=== PATIENT | female | born 1980 | race Caucasian/White ===

== ENCOUNTER 2019-12-13 09:25 | Outpatient (CLI) | payer MEDICAID, SELFPAY ==
[2019-12-13 10:02] LABS: Abs Immature Grans 0.01 k/cumm (0.0-0.09); Absolute Basophil Count 0.03 k/cumm (0.0-0.2); Absolute Eosinophil Count 0.14 k/cumm (0.0-0.7); Absolute Lymphocyte Count 1.26 k/cumm (1.2-3.4); Absolute Monocyte Count 0.55 k/cumm (0.11-0.7); Basophils % 0.6; Eosinophils % 2.9; HCT 39.9 % (36.0-46.0); HGB 12.9 g/dL (12.0-15.5); Immature Grans % 0.2 %; Lymphocytes % 26.3; Mean Corp. HGB Concentration 32.3 g/dL (32.0-36.0); Mean Corpuscular Hemoglobin 29.6 pg (27.0-33.0); Mean Corpuscular Volume 91.5 fL (80-95); Mean Platelet Volume 10.1 fL (8.0-11.0); Monocytes % 11.5; Neutrophils % 58.5; Platelet Count 289 x1000/uL (130-400); RBC 4.36 m/cumm (4.00-5.20); RBC Distribution Width 13.5 % (11.7-14.6); White Blood Cell Count 4.79 k/cumm (4.4-10.8)
[2019-12-13 10:46] LABS: Iron 49 ug/dL (50-170)
[2019-12-13 11:15] LABS: ALT 20 U/L (14-59); AST 16 U/L (15-37); Alkaline Phosphatase 38 U/L (46-116); Anion Gap 6.8 mmol/L (3-11); BUN 6 mg/dL (7-18); Bilirubin, Total 0.3 mg/dL (0.2-1.0); CO2 29.2 mmol/L (21.0-32.0); CREATININE 0.58 mg/dL (0.55-1.02); Calculated LDL 119 mg/dL (<100); Chloride 103 mmol/L (98-107); Cholesterol 219 mg/dL (<200); Ferritin 31 ng/mL (8-252); Glucose 85 mg/dL (74-106); HDL Cholesterol 91 mg/dL (40-60); Potassium 4.3 mmol/L (3.5-5.1); Sodium 139 mmol/L (136-145); Triglyceride 47 mg/dL (<150); Vitamin B12 438 pg/mL (193-986)
[2019-12-14 11:31] LABS: Hepatitis C Ab w Rflx HCV PCR Negative (Negative)
== END 2019-12-13 09:45 ==
PROVIDERS: Visit Provider Naturopath
DX: N94.6 Dysmenorrhea, unspecified (principal); R53.83 Other fatigue; G43.809 Other migraine, not intractable, without status migrainosus; N95.1 Menopausal and female climacteric states; R42 Dizziness and giddiness; D50.9 Iron deficiency anemia, unspecified; D53.9 Nutritional anemia, unspecified; Z13.220 Encounter for screening for lipoid disorders
CPT/HCPCS: 36415; 80053; 80061; 86803; 82607; 82728; 83540; 84439; 84443; 85025

== ENCOUNTER 2019-12-27 12:29 | Outpatient (REF) | payer MEDICAID, SELFPAY ==
--- NOTE | 2019-12-27 15:30 | PAPFT_PTH ---
PATIENT: KARTHIK DUVAL LOC: [facility] U#:[id number] AGE/SX: 39/F ROOM: RE12/27/[address]: Gemma Colon : 1980 BED: DIS: 12/27/2019 SPEC #: [id number] RECD: 12/28/19 12:49 STATUS: RAÚL REQ #: [id number] MARI: 12/27/19 15:[address]: Gemma Colon DEPT: [facility] Cytology RECD BY: Vicky Joseph Tissues: 1 - CX/ENDOCX FOR PAP SMEARS Procedures: PAP THIN PREP/[facility] Screening HPV DNA PROBE Comments: [id number]
== END 2019-12-27 12:49 ==
LOC: LBN 12:29
PROVIDERS: PCP Naturopath; Visit Provider Naturopath
DX: Z12.4 Encounter for screening for malignant neoplasm of cervix (principal)
CPT/HCPCS: 88142; 87624